=== PATIENT | male | born 1960 | race Caucasian/White ===

== ENCOUNTER 2016-12-23 11:41 | Observation (INO) | payer BC ==
--- NOTE | 2016-12-23 11:52 | ED ---
Chest Pain HPI - General Stated Complaint: Near Syncope Time Seen by Provider: 12/23/16 11:41 Source: patient, EMS, RN notes reviewed, old records reviewed Mode of arrival: EMS - History of Present Illness Initial Comments: This is a 56-year-old male who states he had the onset around 10:30 this morning of sharp lower sternal pain radiation to back and was moderate in severity associated with some nausea near-syncope diaphoresis dizziness last about 1 hour 10 minutes. He was pale diaphoretic per paramedics. Pain is currently gone. Prior to the episodes he was feeling fine. No cough fevers chills sweats or phlegm production reported otherwise MD Complaint: chest pain, other - Related Data Home Medications Medication Instructions Recorded Confirmed Atorvastatin [Lipitor] 40 mg PO HS 12/23/16 12/23/16 Levothyroxine Sodium [Synthroid] 25 mcg PO DAILY 12/23/16 12/23/16 Previous Rx's Medication Instructions Recorded Aspirin 325 mg PO DAILY #30 tab 01/04/16 Clopidogrel [Plavix] 75 mg PO DAILY #30 tab 01/04/16 Lisinopril [Zestril] 5 mg PO DAILY #30 tab 01/04/16 Metoprolol Tartrate [Lopressor] 50 mg PO BID #60 tab 01/04/16 Allergies Allergy/AdvReac Type Severity Reaction Status Date / Time No Known Allergies Allergy Verified 12/23/16 12:53 Review of Systems ROS Statement: Those systems with pertinent positive or pertinent negative responses have been documented in the HPI. ROS Other: All systems not noted in ROS Statement are negative. EKG Findings - EKG Results: EKG: interpreted by RIC, sinus rhythm (Sinus bradycardia rate of 50. Interval 204 QRS of 94 QT since QTC of 464/423 old inferior changes no acute ST-T wave changes no change when compared to the EMS 12-lead there was presented. This also compared to an EKG dated 12/31/15) Past Medical History Past Medical History: No Reported History, Coronary Artery Disease (CAD) Additional Past Medical History / Comment(s): Acute inferior wall ST segment elevation myocardial infarction, psoriasis History of Any Multi-Drug Resistant Organisms: None Reported Past Surgical History: Hernia Repair Additional Past Surgical History / Comment(s): L inguinal hernia repair, artery catheterization. Past Anesthesia/Blood Transfusion Reactions: No Reported Reaction Past Psychological History: No Psychological Hx Reported Additional Psychological History / Comment(s): Pt resides with his spouse. He is independent. Smoking Status: Never smoker Past Alcohol Use History: Rare Past Drug Use History: None Reported - Past Family History Father Family Medical History: Congestive Heart Failure (CHF) Additional Family Medical History / Comment(s): Father at the age of 72 yrs of CHF Mother Family Medical History: Cancer Additional Family Medical History / Comment(s): Mother of leukemia at the age of 47yrs. General Exam - General Exam Comments Initial Comments: This is a well-developed well-nourished awake alert oriented history male General appearance: alert, in no apparent distress Head exam: Present: atraumatic, normocephalic, normal inspection Eye exam: Present: normal appearance, PERRL, EOMI. Absent: scleral icterus, conjunctival injection, periorbital swelling ENT exam: Present: normal exam, mucous membranes moist Neck exam: Present: normal inspection. Absent: tenderness, meningismus, lymphadenopathy Respiratory exam: Present: normal lung sounds bilaterally. Absent: respiratory distress, wheezes, rales, rhonchi, stridor Cardiovascular Exam: Present: regular rate, normal rhythm, normal heart sounds. Absent: systolic murmur, diastolic murmur, rubs, gallop, clicks GI/Abdominal exam: Present: soft, normal bowel sounds. Absent: distended, tenderness, guarding, rebound, rigid Extremities exam: Present: normal inspection, full ROM, normal capillary refill. Absent: tenderness, pedal edema, joint swelling, calf tenderness Back exam: Present: normal inspection Neurological exam: Present: alert, oriented X3, CN II-XII intact Psychiatric exam: Present: normal affect, normal mood Skin exam: Present: warm, dry, intact, normal color. Absent: rash Course Vital Signs 12/23/16 12/23/16 11:46 12:02 Temperature 97.2 F L Pulse Rate 52 L 48 L Respiratory 18 18 Rate Blood Pressure 119/71 108/58 O2 Sat by Pulse 95 96 Oximetry Chest Pain MDM - [facility] Patient has been asymptomatic since arrival. Did discuss findings with him as well as. Patient will be admitted for observation and evaluation by cardiology. I did discuss case with Dr. Wallace. The patient does relate that he 's been having episodes of chest pain recently. The concern is that this is similar to his presentation year ago and bypass surgery. Disposition Clinical Impression: Chest pain Disposition: ADMITTED IP TO THIS HOSP Condition: Stable Referrals: Yajaira Andres MD [Primary Care Provider] - 1-2 days
[2016-12-23 12:21] LABS: Basophils # (A) 0.1 k/uL (0-0.2); Basophils % (A) 1 %; CH 29.8; CHCM 35.2; Eosinophils # (A) 0.2 k/uL (0-0.7); Eosinophils % (A) 2 %; HDW 2.63; HGB 14.8 gm/dL (13.0-17.5); Luc # (Auto) 0.12; Luc % (Auto) 1; Lymphocytes # (A) 1.4 k/uL (1.0-4.8); Lymphocytes % (A) 15 %; MCH 29.2 pg (25.0-35.0); MCHC 34.4 g/dL (31.0-37.0); Mean Platelet Volume 6.6; Monocytes # (A) 0.5 k/uL (0-1.0); Monocytes % (A) 5 %; Neutrophils # (A) 7.3 k/uL (1.3-7.7); Neutrophils % (A) 77 %; RBC 5.06 m/uL (4.30-5.90); RDW 13.2 % (11.5-15.5); WBC 9.5 k/uL (3.8-10.6); WBC (Perox) 9.36
--- NOTE | 2016-12-23 12:23 | XR ---
EXAMINATION TYPE: XR chest 2V DATE OF EXAM: 12/23/2016 COMPARISON: January 04, 2016 HISTORY: Chest pain lightheadedness and dizziness today. TECHNIQUE: Frontal and lateral views of the chest are obtained. FINDINGS: There is a vague small airspace opacity at the right lung base. There is also right perihi lar lymphadenopathy. There is no pneumothorax or pleural effusion. There is an implantable device not ed within the heart overlying the left atrium. There is been a sternotomy. The cardiac silhouette is unchanged. IMPRESSION: Right perihilar and right lower lobe opacity. Could be related to atelectasis or focal pneumonia. Fol low-up is required to ensure resolution and exclude neoplasm.
[2016-12-23 12:32] LABS: ALT 47 U/L (21-72); AST 44 U/L (17-59); Alkaline Phosphatase 70 U/L (38-126); Amylase 68 U/L (30-110); Anion Gap 10 mmol/L; Blood Urea Nitrogen 17 mg/dL (9-20); Calcium 9.2 mg/dL (8.4-10.2); Carbon Dioxide 22 mmol/L (22-30); Chloride 107 mmol/L (98-107); Glucose 91 mg/dL (74-99); Magnesium 1.9 mg/dL (1.6-2.3); Non-African American GFR(MDRD) >60 (>60 ml/min/1.73 sqM); Potassium 4.4 mmol/L (3.5-5.1); Sodium 139 mmol/L (137-145); Total Bilirubin 2.5 mg/dL (0.2-1.3); Total Protein 6.5 g/dL (6.3-8.2)
[2016-12-23 12:41] LABS: Creatine Kinase 171 U/L (55-170)
[2016-12-23 12:44] LABS: Prothrombin Time 10.3 sec (9.0-12.0)
[2016-12-23 12:46] LABS: Partial Thromboplastin Time 20.7 sec (22.0-30.0)
[2016-12-23 12:55] LABS: Creatine Kinase MB 1.2 ng/mL (0.0-2.4); Troponin I <0.012 ng/mL (0.000-0.034)
[2016-12-23] MEDS ORDERED: HEPARIN SODIUM,PORCINE 5,000 UNIT/ML 1 ML VIAL IV ONE (13:30)
[2016-12-23] MEDS ORDERED: HEPARIN SODIUM,PORCINE/D5W PMX 25,000 UNIT in DEXTROSE/WATER 1 500ML.BAG IV SCH (13:30)
[2016-12-23] MEDS ORDERED: NITROGLYCERIN SL TABS 0.4 MG TAB SUBLINGUAL PRN (13:30)
[2016-12-23] MEDS: SODIUM CHLORIDE 0.9% 1,000 ML IV SCH (13:56)
--- NOTE | 2016-12-23 18:31 | P.HPIM ---
History of Present Illness H&P Date: 12/23/16 Chief Complaint: Chest pain This is a pleasant 56-year-old gentleman patient of Dr. Andres. He has underlying history of CAD with prior CABG in December 2015 with 4 vessel bypass graft disease, AMZA to the LAD, reverse saphenous vein graft to diagonal artery , ICA, and radial artery to the circumflex when he presented at that time to have an STEMI he follows with Dr. Moncada cardiology. He also has hyperlipidemia , and hypertension no diagnosis of CHF no CVA no diabetes mellitus, he has hypothyroidism and psoriasis. Admitted to the hospital secondary to chest discomfort. Patient was preparing for a yard sale and when he had the chest pain it was a 1030 morning, it was sharp in the epigastric region radiating to the left shoulder accompanied by diaphoresis and nausea and dizziness, patient did not take any medications at home for chest pain including aspirin or nitroglycerin prior to his evaluation, EMS has assisted him at home, EKG at that time failed to reveal any changes, no nitro her aspirin was given, he was subsequently in the emergency room in 15 minutes, chest pain has abated at that time. Patient was admitted for cardiac surveillance for a coronary event. He is worried as his symptoms have been similar presentation to his STEMI In the emergency room EKG was performed showing sinus bradycardia heart rate 50 , inferior infarct with Q waves in 3 and aVF patient currently is heparinize with consultation to cardiology, echocardiogram with serial cardiac markers initial troponin 0.012, lipase normal, d-dimer normal Review of Systems Constitutional: Reports as per HPI, Denies anorexia, Denies chills, Denies chronic headaches, Denies chronic pain, Denies daytime sleepiness, Denies fatigue, Denies fever, Denies lethargy, Denies malaise, Denies night sweats, Denies poor appetite, Denies sweats, Denies weakness, Denies weight gain, Denies weight loss Ears, nose, mouth and throat: Reports as per HPI, Denies ant. neck pain, Denies bleeding gums, Denies dental pain, Denies dysphagia, Denies epistaxis, Denies headache, Denies hoarseness, Denies mouth pain, Denies nasal congestion, Denies nasal discharge, Denies neck fullness/pressure, Denies neck lump, Denies nose pain, Denies odynophagia, Denies post-nasal drip, Denies sinus pain, Denies sinus pressure, Denies swelling in mouth, Denies swelling in throat, Denies sore throat, Denies vertigo, Denies voice changes Cardiovascular: Reports as per HPI, Reports chest pain, Denies claudication, Denies decreased exercise tolerance, Denies dyspnea on exertion, Denies edema, Denies high blood pressure, Denies irregular heart beat, Denies leg edema, Denies lightheadedness, Denies orthopnea, Denies palpitations, Denies paroxysmal nocturnal dyspnea, Denies phlebitis, Denies rapid heart beat, Denies shortness of breath, Denies syncope Respiratory: Reports as per HPI Gastrointestinal: Reports as per HPI Genitourinary: Reports as per HPI Musculoskeletal: Reports as per HPI Integumentary: Reports as per HPI, Reports lesions (Psoriasis stable) Neurological: Reports as per HPI, Denies aphasia, Denies ataxia, Denies balance difficulties, Denies burning pain, Denies change in mentation, Denies change in smell/taste, Denies change in speech, Denies confusion, Denies convulsions, Denies double vision, Denies gait dysfunction, Denies head injury, Denies headaches, Denies hearing difficulties, Denies lack of coordination, Denies loss of vision, Denies memory loss, Denies migraines, Denies motor disturbance, Denies numbness, Denies paralysis, Denies paresthesias, Denies seizures, Denies sensory deficit, Denies spasticity, Denies syncope, Denies tic, Denies tingling , Denies transient paralysis, Denies tremors, Denies vertigo, Denies weakness, Denies visual changes Psychiatric: Reports as per HPI, Denies anhedonia, Denies anxiety, Denies anxiety attacks, Denies change in appetite, Denies change in libido, Denies change in sleep habits, Denies confusion, Denies depression, Denies difficulty concentrating, Denies disorientation, Denies hallucinations, Denies hopelessness , Denies hypersomnia, Denies insomnia, Denies irritability, Denies memory loss, Denies mood swings, Denies paranoia, Denies sadness/tearfulness, Denies sleep disturbances, Denies suicidal ideation Endocrine: Reports as per HPI, Denies cold intolerance, Denies deepening of the voice, Denies excessive sweating, Denies excessive thirst, Denies fatigue, Denies flushing, Denies heat intolerance, Denies high blood sugars, Denies increase in ring/shoe/hat size, Denies low blood sugars, Denies nocturia, Denies palpitations, Denies polydipsia, Denies polyphagia, Denies polyuria, Denies proptosis, Denies recent glucocorticoid use, Denies thyroid mass, Denies weight change Hematologic/Lymphatic: Reports as per HPI Allergic/Immunologic: Reports as per HPI, Denies allergic rhinitis, Denies anaphylaxis, Denies angioedema, Denies gluten intolerance, Denies persistent infections, Denies seasonal allergies, Denies urticaria, Denies wheezing Past Medical History Past Medical History: Coronary Artery Disease (CAD) Additional Past Medical History / Comment(s): Acute inferior wall ST segment elevation myocardial infarction, psoriasis History of Any Multi-Drug Resistant Organisms: None Reported Past Surgical History: Coronary Bypass/CABG, Heart Catheterization, Hernia Repair Additional Past Surgical History / Comment(s): L inguinal hernia repair, artery catheterization. Past Anesthesia/Blood Transfusion Reactions: No Reported Reaction Smoking Status: Never smoker - Past Family History Father Family Medical History: Congestive Heart Failure (CHF) Additional Family Medical History / Comment(s): Father at the age of 72 yrs of CHF Mother Family Medical History: Cancer Additional Family Medical History / Comment(s): Mother of leukemia at the age of 47yrs. Brother(s) History Unknown: Yes (2 brothers healthy no sisters) Daughter(s) History Unknown: Yes (No daughters) Son(s) History Unknown: Yes (3 sons healthy) Medications and Allergies Home Medications Medication Instructions Recorded Confirmed Type Atorvastatin [Lipitor] 40 mg PO HS 12/23/16 12/23/16 History Levothyroxine Sodium [Synthroid] 25 mcg PO DAILY 12/23/16 12/23/16 History Allergies Allergy/AdvReac Type Severity Reaction Status Date / Time No Known Allergies Allergy Verified 12/23/16 12:53 Physical Exam Vitals: Vital Signs Temp Pulse Pulse Resp BP BP Pulse Ox 12/23/16 16:15 52 L 12/23/16 14:55 98 12/23/16 14:46 50 L 12/23/16 14:17 98.5 F 54 L 16 123/78 97 12/23/16 13:52 97.4 F L 49 L 16 115/68 99 08/13/17 12:02 48 L 18 108/58 96 12/23/16 11:46 97.2 F L 52 L 18 119/71 95 Intake and Output 12/23/16 12/23/16 12/23/16 06:59 14:59 22:59 Intake Total 10 Balance 10 Intake: Amount of Fluid Infused ( 10 ml) Other: Voiding Method Toilet Toilet # Voids 1 Weight 88.8 kg Patient Weight 12/24/16 06:59 Weight 88.8 kg - Constitutional General appearance: cooperative, no acute distress - EENT Eyes: anicteric sclerae, EOMI, PERRLA, dentition normal, normal appearance ENT: hearing grossly normal, NA/AT, normal oropharynx - Neck Neck: normal ROM - Cardiovascular Rhythm: regular Heart sounds: normal: S1, S2 Abnormal Heart Sounds: no systolic murmur, no diastolic murmur, no rub, no S3 Gallop, no S4 Gallop, no click, no other - Gastrointestinal General gastrointestinal: normal bowel sounds, soft - Integumentary Integumentary: normal, normal turgor - Neurologic Neurologic: CNII-XII intact, focal deficits (None) - Musculoskeletal Musculoskeletal: gait normal, strength equal bilaterally - Psychiatric Psychiatric: A&O x's 3, appropriate affect, intact judgment & insight Results CBC & Chem 7: 12/23/16 12:00 12/23/16 12:00 Labs: Abnormal Lab Results - Last 24 Hours (Table) 12/23/16 12/23/16 12/23/16 Range/Units 12:00 12:00 12:00 APTT 20.7 L (22.0-30.0) sec Total Bilirubin 2.5 H (0.2-1.3) mg/dL Total Creatine Kinase 171 H (55-170) U/L Laboratory Results WBC 9.5 k/uL (3.8-10.6) 12/23/16 12:00 RBC 5.06 m/uL (4.30-5.90) 12/23/16 12:00 Hgb 14.8 gm/dL (13.0-17.5) 12/23/16 12:00 Hct 43.0 % (39.0-53.0) 12/23/16 12:00 MCV 85.0 fL (80.0-100.0) 12/23/16 12:00 MCH 29.2 pg (25.0-35.0) 12/23/16 12:00 MCHC 34.4 g/dL (31.0-37.0) 12/23/16 12:00 RDW 13.2 % (11.5-15.5) 12/23/16 12:00 Plt Count 255 k/uL (150-450) 12/23/16 12:00 Neutrophils % 77 % 12/23/16 12:00 Lymphocytes % 15 % 12/23/16 12:00 Monocytes % 5 % 12/23/16 12:00 Eosinophils % 2 % 12/23/16 12:00 Basophils % 1 % 12/23/16 12:00 Neutrophils # 7.3 k/uL (1.3-7.7) 12/23/16 12:00 Lymphocytes # 1.4 k/uL (1.0-4.8) 12/23/16 12:00 Monocytes # 0.5 k/uL (0-1.0) 12/23/16 12:00 Eosinophils # 0.2 k/uL (0-0.7) 12/23/16 12:00 Basophils # 0.1 k/uL (0-0.2) 12/23/16 12:00 PT 10.3 sec (9.0-12.0) 12/23/16 12:00 INR 1.0 (<1.2) 12/23/16 12:00 APTT 20.7 sec (22.0-30.0) L 12/23/16 12:00 D-Dimer <0.17 mg/L FEU (<0.60) 12/23/16 12:00 Sodium 139 mmol/L (137-145) 12/23/16 12:00 Potassium 4.4 mmol/L (3.5-5.1) 12/23/16 12:00 Chloride 107 mmol/L (98-107) 12/23/16 12:00 Carbon Dioxide 22 mmol/L (22-30) 12/23/16 12:00 Anion Gap 10 mmol/L 12/23/16 12:00 BUN 17 mg/dL (9-20) 12/23/16 12:00 Creatinine 0.93 mg/dL (0.66-1.25) 12/23/16 12:00 Est GFR (MDRD) Af Amer >60 (>60 ml/min/1.73 sqM) 12/23/16 12:00 Est GFR (MDRD) Non-Af >60 (>60 ml/min/1.73 sqM) 12/23/16 12:00 Glucose 91 mg/dL (74-99) 12/23/16 12:00 Calcium 9.2 mg/dL (8.4-10.2) 12/23/16 12:00 Magnesium 1.9 mg/dL (1.6-2.3) 12/23/16 12:00 Total Bilirubin 2.5 mg/dL (0.2-1.3) H 12/23/16 12:00 AST 44 U/L (17-59) 12/23/16 12:00 ALT 47 U/L (21-72) 12/23/16 12:00 Alkaline Phosphatase 70 U/L (38-126) 12/23/16 12:00 Total Creatine Kinase 171 U/L (55-170) H 12/23/16 12:00 CK-MB (CK-2) 1.2 ng/mL (0.0-2.4) 12/23/16 12:00 CK-MB (CK-2) Rel Index 0.7 12/23/16 12:00 Troponin I <0.012 ng/mL (0.000-0.034) 12/23/16 12:00 NT-Pro-B Natriuret Pep 232 pg/mL 12/23/16 12:00 Total Protein 6.5 g/dL (6.3-8.2) 12/23/16 12:00 Albumin 4.1 g/dL (3.5-5.0) 12/23/16 12:00 Amylase 68 U/L (30-110) 12/23/16 12:00 Lipase 67 U/L (23-300) 12/23/16 12:00 Thrombosis Risk Factor Assmnt - Choose All That Apply Any of the Below Risk Factors Present?: No Other Risk Factors: No Other congenital or acquired thrombophilia - If yes, enter type in comment: No Thrombosis Risk Factor Assessment Level: Very Low Risk Assessment and Plan Plan: 1. Atypical chest pain with no clear-cut features of unstable angina, patient has epigastric discomfort radiating to the left shoulder, nonexertional in nature, patient has known history of CAD with prior CABG in the past, last stress test was June 2016 and was reportedly to be normal, patient was in consultation with cardiology, cardiac biomarkers for troponins and echocardiogram will be obtained, patient's on IV heparin, and sublingual nitro when necessary continue on Plavix Lipitor and full dose aspirin 325 mg metoprolol 50 mg twice a day lisinopril 5 mg daily 2. Hypertensive card vascular disease on lisinopril 5 daily and Toprol 50 mg twice a day, 3. Hypothyroidism on levothyroxine 25 mg daily 4. Hyperlipidemia on Lipitor 40 mg GI prophylaxis using Pepcid DVT prophylaxis patient currently is on IV heparin for cardiac reasons CODE STATUS full
[2016-12-23] MEDS ORDERED: HEPARIN SODIUM,PORCINE 5,000 UNIT/ML 1 ML VIAL IV PRN (19:26)
[2016-12-23 19:54] LABS: Creatine Kinase 140 U/L (55-170)
[2016-12-23 20:08] LABS: Troponin I <0.012 ng/mL (0.000-0.034)
[2016-12-23] MEDS: FAMOTIDINE 20 MG TAB PO SCH (20:55)
[2016-12-23] MEDS ORDERED: ATORVASTATIN 40 MG TAB PO SCH (21:00)
[2016-12-23] MEDS ORDERED: METOPROLOL TARTRATE 50 MG TAB PO SCH (21:00)
[2016-12-24 01:17] LABS: Creatine Kinase 119 U/L (55-170)
[2016-12-24 01:30] LABS: Troponin I <0.012 ng/mL (0.000-0.034)
[2016-12-24 07:55] LABS: Cholesterol 140 mg/dL (<200); HDL Cholesterol 44 mg/dL (40-60)
[2016-12-24] MEDS ORDERED: ASPIRIN 81 MG CHEW PO SCH (09:00)
[2016-12-24] MEDS ORDERED: ASPIRIN 325 MG TAB PO SCH ×2 (09:00)
[2016-12-24] MEDS ORDERED: LISINOPRIL 5 MG TAB PO SCH (09:00)
[2016-12-24] MEDS ORDERED: CLOPIDOGREL 75 MG TAB PO SCH (09:00)
[2016-12-24] MEDS ORDERED: METOPROLOL TARTRATE 50 MG TAB PO SCH (09:00)
[2016-12-24] MEDS ORDERED: LEVOTHYROXINE 25 MCG TAB PO SCH (09:00)
--- NOTE | 2016-12-24 10:26 | ECHOF ---
Referral Reason:Chest pain MEASUREMENTS -------- HEIGHT: 180.3 cm WEIGHT: 88.5 kg BP: 113/70 RVIDd: 3.8 cm (< 3.3) IVSd: 1.3 cm (0.6 - 1.1) LVIDd: 4.3 cm (3.9 - 5.3) LVPWd: 1.3 cm (0.6 - 1.1) IVSs: 1.9 cm LVIDs: 2.9 cm LVPWs: 1.3 cm Ao Diam: 2.9 cm (2.0 - 3.7) AV Cusp: 2.2 cm (1.5 - 2.6) LA Diam: 3.4 cm (2.7 - 3.8) MV EXCURSION: 14.924 mm (> 18.000) MV EF SLOPE: 129 mm/s (70 - 150) EPSS: 0.6 cm MV E Ryan: 0.72 m/s MV DecT: 172 ms MV A Ryan: 0.61 m/s MV E/A Ratio: 1.18 RAP: 5.00 mmHg RVSP: 13.09 mmHg FINDINGS -------- Sinus rhythm. This was a technically good study. There is mild concentric left ventricular hypertrophy. Overall left ventricular systolic function is mildly impaired with, an EF between 45 - 50 %. Inferiorlateral Hypokinesis The right ventricle is mild to moderately enlarged. The left atrium is normal in size. The right atrium is normal in size. The aortic valve is trileaflet, and appears structurally normal. No aortic stenosis or regurgitation. There is trace mitral regurgitation. Trace tricuspid regurgitation present. The right ventricular systolic pressure, as measured by Doppler, is 13.09mmHg. Pulmonic valve appears structurally normal. The aortic root size is normal. Normal inferior vena cava with normal inspiratory collapse consistent with estimated right atrial pressure of 5 mmHg. The pericardium is normal. CONCLUSIONS -------- 1. Sinus rhythm. 2. There is trace mitral regurgitation. 3. Trace tricuspid regurgitation present. 4. The right ventricular systolic pressure, as measured by Doppler, is 13.09mmHg. 5. Pulmonic valve appears structurally normal. 6. The aortic root size is normal. 7. Normal inferior vena cava with normal inspiratory collapse consistent with estimated right atrial pressure of 5 mmHg. 8. The pericardium is normal. 9. This was a technically good study. 10. There is mild concentric left ventricular hypertrophy. 11. Overall left ventricular systolic function is mildly impaired with, an EF between 45 - 50 %. 12. Inferiorlateral Hypokinesis 13. The right ventricle is mild to moderately enlarged. 14. The left atrium is normal in size. 15. The right atrium is normal in size. 16. The aortic valve is trileaflet, and appears structurally normal. No aortic stenosis or regurgitation. GRAPHIC MANAGER: Daniela Will RDCS
[2016-12-24 11:55] LABS: Hemoglobin A1C 5.3 % (4.2-6.1)
--- NOTE | 2016-12-24 11:56 | ECHOS ---
DATE OF SERVICE: 12/24/2016 TYPE OF REPORT: STRESS ECHOCARDIOGRAM INDICATION: Chest pain. BASELINE HEART RATE: 65 BASELINE BLOOD PRESSURE: 113/70 MAXIMUM HEART RATE: 140 MAXIMUM BLOOD PRESSURE: 193/113 85% MPHR: 139 100% MPHR: 164 METS: 12.1 MAXIMUM STAGE REACHED: 4 TOTAL EXERCISE TIME: 12:00 Baseline EKG revealed a sinus mechanism with nondiagnostic inferior Q-waves suggestive of possible prior old inferior AR. Patient had rare isolated PVC's. He walked on a standard Kulwinder protocol for 12 minutes, achieved a maximum heart rate of 140 beats per minute which is 85% of predicted maximal. The ectopy seemed to disappear as exercise progressed. There was no angina. There were no ST segment changes to indicate ischemia. By EKG criteria, this is a negative stress test with excellent exercise capacity with rare PVC's. There was one couplet noted, unassociated with symptoms. Baseline echo images revealed an area of hypokinesia involving the inferior wall of left ventricle which was seen on rest images. The rest of the myocardium seemed to contract well. Resting ejection fraction was between 45% to 50% with inferobasal and inferoseptal hypokinesia. At peak exercise, there was good augmentation of left ventricular wall motion and wall thickening of all segments except the inferior wall where he had a prior inferior AR. The study suggests old inferior AR without evidence of stress induced ischemia with an excellent exercise capacity. FINAL IMPRESSION: 1. Excellent exercise capacity with a negative stress test by EKG criteria. 2. Isolated ventricular ectopy were noted without symptoms. 3. Stress echocardiogram revealed old inferior myocardial infarction without stress induced ischemia. 4. Results were discussed with the patient and he can be discharged and see Dr. Moncada as an outpatient. in two weeks. ERENDIRA
[2016-12-24 12:01] VITALS: BP 116/64; PULSE 55; RESP 18; TEMP 98.5
[2016-12-24] MEDS: FAMOTIDINE 20 MG TAB PO SCH (14:44)
[2016-12-24] MEDS: SODIUM CHLORIDE 0.9% 1,000 ML IV SCH (14:45)
--- NOTE | 2016-12-24 15:37 | P.DS ---
Providers Date of admission: 12/23/16 13:33 Expected date of discharge: 12/24/16 Attending physician: Ansley Wallace Consults: 12/23/16 13:30 Consult Physician Urgent Consulting Provider: Shawn Moncada Consult Reason/Comments: Chest pain Do you want consulting provider notified?: Yes Primary care physician: Yajaira Andres [facility] Course: This is a pleasant 56-year-old gentleman patient of Dr. Andres. He has underlying history of CAD with prior CABG in December 2015 with 4 vessel bypass graft disease, MAZA to the LAD, reverse saphenous vein graft to diagonal artery , ICA, and radial artery to the circumflex when he presented at that time to have an STEMI he follows with Dr. Moncada cardiology. He also has hyperlipidemia , and hypertension no diagnosis of CHF no CVA no diabetes mellitus, he has hypothyroidism and psoriasis. Admitted to the hospital secondary to chest discomfort. Patient was preparing for a yard sale and when he had the chest pain it was a 1030 morning, it was sharp in the epigastric region radiating to the left shoulder accompanied by diaphoresis and nausea and dizziness, patient did not take any medications at home for chest pain including aspirin or nitroglycerin prior to his evaluation, EMS has assisted him at home, EKG at that time failed to reveal any changes, no nitro her aspirin was given, he was subsequently in the emergency room in 15 minutes, chest pain has abated at that time. Patient was admitted for cardiac surveillance for a coronary event. He is worried as his symptoms have been similar presentation to his STEMI In the emergency room EKG was performed showing sinus bradycardia heart rate 50 , inferior infarct with Q waves in 3 and aVF patient currently is heparinize with consultation to cardiology, echocardiogram with serial cardiac markers initial troponin 0.012, lipase normal, d-dimer normal 12/24: Patient was seen in consultation by Dr. BENNETT Madrigal. Echocardiogram reveals trace mitral regurgitation, trace tricuspid regurgitation EF 45-50% with mild concentric left ventricular hypertrophy. He underwent a stress echocardiogram which was normal and patient was cleared for discharge home today in stable condition. Patient will be sent home with nitroglycerin to use if he develops further chest pain. Full strength aspirin has been changed 81 mg daily and Lopressor changed to once daily. Discharge diagnoses: 1. Atypical chest pain 2. Hypertensive card vascular disease 3. Hypothyroidism 4. Hyperlipidemia Discharge plan: Return home Impression and plan of care have been directed as dictated by the signing physician. Danielle De Guzman nurse practitioner acting as scribe for signing physician. Patient Condition at Discharge: Good Plan - Discharge Summary New Discharge Prescriptions: New Aspirin 81 mg PO DAILY Nitroglycerin Sl Tabs [Nitrostat] 0.4 mg SUBLINGUAL Q5M PRN #25 tab PRN Reason: Chest Pain Continue Clopidogrel [Plavix] 75 mg PO DAILY #30 tab Lisinopril [Zestril] 5 mg PO DAILY #30 tab Levothyroxine Sodium [Synthroid] 25 mcg PO DAILY Atorvastatin [Lipitor] 40 mg PO HS Changed Metoprolol Tartrate [Lopressor] 50 mg PO DAILY #60 tab Discontinued Aspirin 325 mg PO DAILY #30 tab Discharge Medication List Clopidogrel [Plavix] 75 mg PO DAILY #30 tab 01/04/16 [Rx] Lisinopril [Zestril] 5 mg PO DAILY #30 tab 01/04/16 [Rx] Atorvastatin [Lipitor] 40 mg PO HS 12/23/16 [History] Levothyroxine Sodium [Synthroid] 25 mcg PO DAILY 12/23/16 [History] Aspirin 81 mg PO DAILY 12/24/16 [Rx] Metoprolol Tartrate [Lopressor] 50 mg PO DAILY #60 tab 12/24/16 [Rx] Nitroglycerin Sl Tabs [Nitrostat] 0.4 mg SUBLINGUAL Q5M PRN #25 tab 12/24/16 [Rx ] Follow up Appointment(s)/Referral(s): Yajiara Andres MD [Primary Care Provider] - 1 Week Shawn Moncada MD [STAFF PHYSICIAN] - 01/07/17 11:00 am Patient Instructions/Handouts: Angina (GEN) Discharge Disposition: HOME SELF-CARE
--- NOTE | 2016-12-24 17:50 | CONS ---
This is a 56-year-old gentleman with a known history of prior inferior TX and aortocoronary bypass surgery. This gentleman presented initially in December of 2015 with acute inferior TX, was found to have a distal left main disease, and also a 95% RCA stenosis. He underwent balloon angioplasty of RCA, and 48 hours later he went on to have aortocoronary bypass surgery with a MAZA to LAD, vein graft to the RCA, and also a radial artery free graft to the circumflex. Since then he has done well. In May of this year he walked on a standard Kulwinder protocol for 10-1/2 minutes with evidence of old inferior TX without any stress- induced ischemia. However, yesterday he was getting ready for a garage sale. He did some moving of tables and stuff and then he was on his way to go and get some donuts and felt an uncomfortable feeling below his left sternum, mostly in the epigastric area, and then this radiated to the back. He felt a little diaphoretic. He felt uncomfortable and there was an element of anxiety. Then he pulled over and went into the house and called 911. By the time EMS arrived, his symptoms had resolved. However, he comes into the hospital, and since arrival he is asymptomatic. His troponins are normal. His EKG revealed sinus bradycardia without acute changes. There is evidence of old inferior TX. He is resting comfortably without symptoms. PAST MEDICAL HISTORY: 1. Acute inferior TX with PTCA of RCA and 48 hours later bypass surgery. 2. Hypertension. 3. Hyperlipidemia. Medications at home include: 1. Aspirin. 2. Plavix. 3. Lopressor 50 mg b.i.d. 4. Atorvastatin 40 mg daily. 5. Lisinopril 5 mg daily. 6. Levothyroxine 25 mcg daily. ALLERGIES: NONE. REVIEW OF SYSTEMS: Unremarkable other than above-mentioned facts. On examination, blood pressure is in the range of 128/70. Pulse rate is about 56 per minute. HEENT: Unremarkable. Fundus was not examined by me. Neck is supple. No JVD. I do not hear a carotid bruit. Heart exam reveals S1, S2 heard normally without a significant rub, murmur or gallop. Lungs are clear. Abdomen is soft, non-tender. Lower extremities reveal normal pulses. No edema. Central nervous system is normal. EKG revealed sinus bradycardia, evidence of old inferior TX. No acute changes. IMPRESSION: 1. Epigastric and chest pain; seems atypical, but given patient's previous history of myocardial infarction and bypass surgery, we cannot exclude this being angina. However, pain is atypical. 2. Hypertension. 3. Hypercholesterolemia. RECOMMENDATIONS: I am recommending that we decrease the Lopressor to 50 mg daily , hold it this morning. Discontinue IV heparin. Decrease aspirin to 81 mg daily. Increase activity. Perform a stress echo, and if this is normal, he can be discharged. I discussed my thoughts in detail with the patient. Thank you very much for the consult. ERENDIRA
== END 2016-12-24 14:27 | disposition home or self-care (01) ==
LOC: EC 11:41 → 3OBS 13:33
PROVIDERS: ADMIT Family Medicine; ATTEND Family Medicine
DX: R07.89 Other chest pain (principal); R10.13 Epigastric pain; R11.0 Nausea; R42 Dizziness and giddiness; R61 Generalized hyperhidrosis; I25.10 Atherosclerotic heart disease of native coronary artery without angina pectoris; I11.9 Hypertensive heart disease without heart failure; E03.9 Hypothyroidism, unspecified; E78.5 Hyperlipidemia, unspecified; E78.00 Pure hypercholesterolemia, unspecified; I25.2 Old myocardial infarction; Z95.1 Presence of aortocoronary bypass graft; Z82.49 Family history of ischemic heart disease and other diseases of the circulatory system; Z80.6 Family history of leukemia; Z79.82 Long term (current) use of aspirin; Z79.899 Other long term (current) drug therapy; Z79.02 Long term (current) use of antithrombotics/antiplatelets
CPT/HCPCS: 99285; 96376 ×3; 96365; 96366 ×2; 36415; 94760; 93005; 93017; 93306; 93350; 85379; 83880; 80061; 80053; 82150; 83036; 82550 ×2; 82553 ×2; 83690; 83735; 84484 ×2; 85025; 85610; 85730 ×2; 71020; G0378 ×2; J1644 ×2

== ENCOUNTER → 2020-01-28 | Outpatient (CLI) | payer BC ==
[2020-01-28 08:53] LABS: Basophils # (A) 0.1 k/uL (0-0.2); Basophils % (A) 1 %; Eosinophils # (A) 0.2 k/uL (0-0.7); Eosinophils % (A) 3 %; HCT 45.4 % (39.0-53.0); HGB 15.2 gm/dL (13.0-17.5); Lymphocytes # (A) 2.5 k/uL (1.0-4.8); Lymphocytes % (A) 26 %; MCH 29.3 pg (25.0-35.0); MCHC 33.5 g/dL (31.0-37.0); MCV 87.3 fL (80.0-100.0); Monocytes # (A) 0.6 k/uL (0-1.0); Monocytes % (A) 7 %; Neutrophils # (A) 6.1 k/uL (1.3-7.7); Neutrophils % (A) 63 %; Platelet Count 255 k/uL (150-450); RBC 5.21 m/uL (4.30-5.90); RDW 12.8 % (11.5-15.5); WBC 9.7 k/uL (3.8-10.6)
[2020-01-28 16:25] LABS: African American GFR (CKD) 76.3 (60.0-200.0); Chol/HDL Ratio 3.46; LDL Cholesterol,Calculated 74.6 mg/dL (0.0-131.0); Non-African American GFR(CKD) 65.8 (60.0-200.0); VLDL Calculation 16.4 mg/dL (5.00-40.00)
== END | disposition home or self-care (01) ==
LOC: LABWHC1 08:10
PROVIDERS: ATTEND Internal Medicine Cardiovascular Disease
DX: E78.2 Mixed hyperlipidemia (principal); L40.0 Psoriasis vulgaris
CPT/HCPCS: 36415; 80061; 82565; 84450; 84460; 84520; 85025; 86480

== ENCOUNTER → 2021-01-25 | Outpatient (CLI) | payer BC ==
[2021-01-25 10:39] LABS: Basophils # (A) 0.06 X 10*3/uL (0.00-0.10); Basophils % (A) 0.7 %; Eosinophils # (A) 0.22 X 10*3/uL (0.04-0.35); Eosinophils % (A) 2.5 %; HCT 46.9 % (39.6-50.0); HGB 15.4 g/dL (13.0-17.0); Lymphocytes # (A) 2.31 X 10*3/uL (0.90-5.00); Lymphocytes % (A) 25.9 %; MCH 28.8 pg (27.0-32.0); MCHC 32.8 g/dL (32.0-37.0); MCV 87.8 fL (80.0-97.0); Monocytes # (A) 0.74 X 10*3/uL (0.20-1.00); Monocytes % (A) 8.3 %; Neutrophils # (A) 5.54 X 10*3/uL (1.80-7.70); Neutrophils % (A) 62.2 %; Platelet Count 255 X 10*3/uL (140-440); RBC 5.34 X 10*6/uL (4.40-5.60); RDW 12.9 % (11.5-14.5); WBC 8.91 X 10*3/uL (4.50-10.00)
[2021-01-26 02:20] LABS: African American GFR (CKD) 75.7 (60.0-200.0); Chol/HDL Ratio 3.6; LDL Cholesterol,Calculated 90.8 mg/dL (0.0-131.0); Non-African American GFR(CKD) 65.3 (60.0-200.0); VLDL Calculation 21.2 mg/dL (5.00-40.00)
== END | disposition home or self-care (01) ==
LOC: LABWHC1 07:15
PROVIDERS: ATTEND Internal Medicine Cardiovascular Disease
DX: E78.2 Mixed hyperlipidemia (principal); L40.0 Psoriasis vulgaris
CPT/HCPCS: 36415; 80061; 82565; 84450; 84460; 84520; 85025; 86480

== ENCOUNTER → 2022-02-14 | Outpatient (CLI) | payer BC ==
[2022-02-14 18:19] LABS: Basophils # (A) 0.07 X 10*3/uL (0.00-0.10); Basophils % (A) 0.7 %; Eosinophils # (A) 0.23 X 10*3/uL (0.04-0.35); Eosinophils % (A) 2.4 %; HCT 45.1 % (39.6-50.0); HGB 15.1 g/dL (13.0-17.0); Immature Grans, Automated 0.4 %; Lymphocytes # (A) 2.94 X 10*3/uL (0.90-5.00); Lymphocytes % (A) 30.4 %; MCH 29.7 pg (27.0-32.0); MCHC 33.5 g/dL (32.0-37.0); MCV 88.6 fL (80.0-97.0); Mean Platelet Volume 9.8 fL (9.5-12.2); Monocytes # (A) 0.77 X 10*3/uL (0.20-1.00); NRBC Per 100 WBC 0 /100 WBCS (0.0-0.0); Neutrophils # (A) 5.62 X 10*3/uL (1.80-7.70); Neutrophils % (A) 58.1 %; Platelet Count 275 X 10*3/uL (140-440); RBC 5.09 X 10*6/uL (4.40-5.60); RDW 12.7 % (11.5-14.5); WBC 9.67 X 10*3/uL (4.50-10.00)
[2022-02-14 18:31] LABS: African American GFR (CKD) 83.5 (60.0-200.0); Blood Urea Nitrogen 14.5 mg/dL (9.0-27.0); Non-African American GFR(CKD) 72.1 (60.0-200.0)
== END | disposition home or self-care (01) ==
LOC: LABWHC1 11:08
PROVIDERS: ATTEND Physician Assistant Medical
DX: L40.0 Psoriasis vulgaris (principal)
CPT/HCPCS: 36415; 82565; 84450; 84460; 84520; 85025; 86480

== ENCOUNTER → 2022-11-02 | Outpatient (CLI) | payer BC ==
[2022-11-02 15:48] LABS: Basophils # (A) 0.05 X 10*3/uL (0.00-0.10); Basophils % (A) 0.6 %; Eosinophils # (A) 0.21 X 10*3/uL (0.04-0.35); Eosinophils % (A) 2.5 %; HCT 44.9 % (39.6-50.0); HGB 14.4 d/dL (12.0-15.0); Lymphocytes # (A) 2.33 X 10*3/uL (0.90-5.00); Lymphocytes % (A) 27.9 %; MCH 28.4 pg (27.0-32.0); MCHC 32.1 d/dL (32.0-37.0); MCV 88.6 FL (80.0-97.0); Mean Platelet Volume 10.1 FL (9.5-12.2); Monocytes # (A) 0.61 X 10*3/uL (0.20-1.00); Monocytes % (A) 7.3 %; NRBC Per 100 WBC 0 X 10*3/uL (0.00-0.01); Neutrophils # (A) 5.11 X 10*3/uL (1.80-7.70); Neutrophils % (A) 61.3 %; Platelet Count 229 X 10*3/uL (140-440); RBC 5.07 X 10*6/uL (4.40-5.60); RDW 12.9 % (11.5-14.5); WBC 8.34 X 10*3/uL (4.50-10.00)
== END | disposition home or self-care (01) ==
LOC: LABPAT 08:06
PROVIDERS: ATTEND Surgery
DX: Z01.812 Encounter for preprocedural laboratory examination (principal)
CPT/HCPCS: 36415; 85025

== ENCOUNTER → 2022-11-09 | Day surgery (SDC) | payer BC ==
[2022-11-06 15:45] VITALS: BMI 28.5
[~2022-11-09] MED LIST: ACETAMINOPHEN TAB 325 MG TAB PO SCH; ACETAMINOPHEN TAB 500 MG TAB PO PRN; BUPIVACAINE (PF) 0.25% 30 ML VIAL SQ ONE; DEXAMETHASONE SOD PHOSPHATE 4 MG/ML 1 ML VIAL IV ONE; GLYCOPYRROLATE 0.2 MG/ML 2 ML VIAL ONE; HEPARIN SODIUM,PORCINE/PF 5,000 UNIT/0.5 ML SYRINGE SQ PRN; HYDROmorphone (PF) 1 MG/ML ONE; HYDROmorphone 0.5 MG/0.5 ML SYRINGE IVP PRN; IBUPROFEN 600 MG TAB PO SCH; KETOROLAC 30 MG/ML 1 ML VIAL ONE; LACTATED RINGERS 1,000 ML IV ONE; LACTATED RINGERS 1,000 ML IV SCH; LIDOCAINE 2% INJ 20 MG/ML (2 ML VIAL) ONE; MIDAZOLAM 2 MG/2 ML VIAL IV PRN; NEOSTIGMINE 1 MG/ML 10 ML VIAL ONE; ONDANSETRON 4 MG/2 ML VIAL IVP ONE; PROPOFOL 10 MG/ML 20 ML VIAL IV ONE; ROCURONIUM 10 MG/ML (5 ML VIAL) IV ONE; SCOPOLAMINE 1 MG/72 HR PATCH TRANSDERM ONE; SUCCINYLCHOLINE CHLORIDE 200 MG/10 ML VIAL IV ONE; TAMSULOSIN 0.4 MG CAP.ER.24H PO ONE; ePHEDrine 50 MG/ML 1 ML VIAL ONE; fentaNYL (PF) 50 MCG/ML 2 ML AMP ONE
[2022-11-09 06:41] LABS: Glucose,Whole Blood 122 mg/dL (70-110)
--- NOTE | 2022-11-09 07:30 | P.GSHP ---
History of Present Illness H&P Date: 11/09/22 Chief Complaint: Right inguinal hernia Refer to recent history and physical from September. Patient here today for elective repair umbilical hernia right inguinal hernia and excision left hip lipoma. No symptoms have changed since his last visit. Past Medical History Past Medical History: Coronary Artery Disease (CAD), Hyperlipidemia, Hypertension, Myocardial Infarction (NE) Additional Past Medical History / Comment(s): lipoma left thigh, Last Myocardial Infarction Date:: DECEMBER 28, 2015 History of Any Multi-Drug Resistant Organisms: None Reported Past Surgical History: Coronary Bypass/CABG, Heart Catheterization, Hernia Repair Additional Past Surgical History / Comment(s): L inguinal hernia repair, CABG (2015 [facility]), colonoscopy Past Anesthesia/Blood Transfusion Reactions: No Reported Reaction, Motion Sickness Past Psychological History: No Psychological Hx Reported Additional Psychological History / Comment(s): . Smoking Status: Never smoker Past Alcohol Use History: Rare Past Drug Use History: None Reported - Past Family History Father Family Medical History: Congestive Heart Failure (CHF) Additional Family Medical History / Comment(s): Father at the age of 72 yrs of CHF Mother Family Medical History: Cancer Additional Family Medical History / Comment(s): Mother of leukemia at the age of 47yrs. Brother(s) History Unknown: Yes Family Medical History: No Reported History Daughter(s) History Unknown: Yes Family Medical History: No Reported History Son(s) History Unknown: Yes Family Medical History: No Reported History Medications and Allergies Home Medications Medication Instructions Recorded Confirmed Type Aspirin 81 mg PO DAILY 12/24/16 11/06/22 Rx Adalimumab [Humira Pen] 40 mg SQ [id number] 11/06/22 11/06/22 History Atorvastatin [Lipitor] 80 mg PO DAILY 11/06/22 11/06/22 History Metoprolol Succinate [Toprol XL] 50 mg PO DAILY 11/06/22 11/06/22 History lisinopriL [Zestril] 10 mg PO DAILY 11/06/22 11/06/22 History Allergies Allergy/AdvReac Type Severity Reaction Status Date / Time No Known Allergies Allergy Verified 11/06/22 15:16 Surgical - Exam Vital Signs Temp Pulse Resp BP Pulse Ox 97 F L 53 L 20 137/78 99 11/09/22 06:45 11/09/22 06:45 11/09/22 06:45 11/09/22 06:45 11/09/22 06:45 Physical exam: General: Well-developed, well-nourished HEENT: Normocephalic, sclerae nonicteric Abdomen: Nontender, nondistended, small reducible umbilical hernia, small to moderate-sized reducible right inguinal hernia Extremities: No edema, large lipomatous mass left hip 10 x 8 cm Neuro: Alert and oriented Results - Labs Abnormal Lab Results - Last 24 Hours (Table) 11/09/22 Range/Units 06:23 POC Glucose (mg/dL) 122 H (70-110) mg/dL Assessment and Plan (1) Inguinal hernia Narrative/Plan: 62-year-old male with right inguinal hernia, umbilical hernia, and left hip lipomatous mass. We'll proceed with laparoscopic da Tonio assisted repair riding or hernia with mesh, possible open, possible bilateral with open repair umbilical hernia with possible mesh with excision left hip lipomatous mass. Risks of bleeding, infection, recurrence, bladder and bowel injury, numbness, nerve injury, conversion to an open procedure were discussed with the patient. The patient understands and wishes to proceed. Current Visit: Yes Status: Acute Code(s): K40.90 - UNIL INGUINAL HERNIA, W/O OBST OR GANGR, NOT SPCF RECUR SNOMED Code(s): 131996882
[2022-11-09 10:14] VITALS: RESP 16; TEMP 98
--- NOTE | 2022-11-09 10:28 | P.OP ---
Date of Procedure: 11/09/22 Procedure(s) Performed: PREOPERATIVE DIAGNOSIS: Umbilical hernia, right inguinal hernia, left hip mass POSTOPERATIVE DIAGNOSIS: Same PROCEDURE: Da Tonio assisted laparoscopic repair right direct inguinal hernia with mesh, open repair umbilical hernia, excision left hip mass with intermediate closure SURGEON: Dr. Sr ANESTHESIA: General OPERATIVE PROCEDURE DETAILS: Patient was placed in the operating table in the supine position. The patient was placed under general anesthesia. The abdomen was prepped and draped in usual sterile fashion. A small curvilinear supraumbilical incision was made. The hernia sac was dissected and partially excised. The umbilical skin was dissected away from the fascia. The defect was about 1.5 cm in size. We had a peritoneal opening at that location. 2 sutures were used to reapproximate the fascia. In between that the 8 mm trocar was advanced. Full insufflation took place to 15 mm. 2 additional 8 mm trochars were placed in the right upper quadrant and left upper quadrant under visualization. The robotic arms were then brought in and docked into place. The fenestrated bipolar was used in the left arm and the laparoscopic shahid was utilized in the right arm. A 30 8 mm scope was used in the up position. The peritoneal cavity was inspected. No hernia was seen on the left-hand side. On the right-hand side a moderate sized direct inguinal hernia was seen. The peritoneum was incised in a horizontal fashion cephalad to the internal inguinal ring. Following that careful dissection of the preperitoneal space took place. This took place using both electrocautery, sharp dissection but primarily blunt dissection. Visualization of the pubic tubercle and Marcelino's ligament took place medially. Full dissection took place laterally as well. The hernia sac was fully dissected. Once we had adequate space the [id number] Progrip mesh was advanced into the preperitoneal space and flattened out appropriately to cover all potential hernia sites. The mesh was sutured to Marcelino's ligament, pubis, and midline using a running absorbable 30V lock suture. The peritoneal defect was then closed using a absorbable 2-0 VLok suture. The hernia sac was incorporated into the peritoneal closure to help prevent future recurrence. The pneumoperitoneum was then evacuated. The fascia felt fairly strong at the umbilical hernia site. The fascial defect was closed using interrupted [id number] Ethibond sutures. No mesh was utilized. The umbilicus was sutured down using a 2-0 Vicryl stitch through the subcutaneous tissues were closed using 3-0 Vicryl sutures. The skin of all 3 sites was closed using a 4-0 Monocryl stitch. Skin glue was then applied. We then reprepped and draped the left hip area. A vertical incision was made overlying the palpable mass. The large lipomatous mass was carefully dissected using blunt dissection and c autery. This had multiple extensions into the surrounding tissues. This was removed as one piece. No residual atypical lipomatous tissue was noted at that time. The size of this was 12 x 10 cm. This was sent to pathology. This was above the level of the fascia. The area was irrigated. No bleeding was seen. The subcutaneous tissues were closed using 20 and 3-0 Vicryl sutures. Length of intermediate closure 8 cm. The skin was closed using a running 4-0 Monocryl suture. Skin glue and sterile dressings were applied. TYPE OF MESH USED: 15 x 10 cm progrip LOCATION OF MESH: Preperitoneal FIXATION: Absorbable 30V lock PREOPERATIVE DISCUSSION ON SMOKING CESSASTION: Yes PREOPERATIVE DISCUSSION ON MORBID OBESITY: Yes PREOPERATIVE DISCUSSION ON APPROPRIATE USE OF NARCOTIC USE: Yes PREOPERATIVE EDUCATION: Multi Modal, Smoking Cessation and Weight Loss with BMI over 35. DISPOSITION: Stable to recovery room
[2022-11-09 12:29] VITALS: BP 149/77; PULSE 52
== END ==
LOC: OR 05:41
PROVIDERS: ATTEND Surgery
DX: D17.24 Benign lipomatous neoplasm of skin and subcutaneous tissue of left leg (principal); K40.90 Unilateral inguinal hernia, without obstruction or gangrene, not specified as recurrent; K42.9 Umbilical hernia without obstruction or gangrene; I25.10 Atherosclerotic heart disease of native coronary artery without angina pectoris; I25.2 Old myocardial infarction; I10 Essential (primary) hypertension; E78.5 Hyperlipidemia, unspecified; Z95.1 Presence of aortocoronary bypass graft; Z98.890 Other specified postprocedural states; F10.20 Alcohol dependence, uncomplicated; Z79.82 Long term (current) use of aspirin; Z79.899 Other long term (current) drug therapy
CPT/HCPCS: 27045; 49591; 49650; S2900; 86850; 86900; 86901; 88302; 88304

== ENCOUNTER → 2023-04-10 | Outpatient (CLI) | payer BC ==
[2023-04-10 16:18] LABS: Chol/HDL Ratio 3.45 Ratio; LDL Cholesterol,Calculated 72.6 mg/dL (0.0-131.0)
[2023-04-10 16:27] LABS: Basophils # (A) 0.06 X 10*3/uL (0.00-0.10); Basophils % (A) 0.6 %; Eosinophils # (A) 0.19 X 10*3/uL (0.04-0.35); Eosinophils % (A) 1.9 %; HCT 49.4 % (39.6-50.0); HGB 16.2 g/dL (13.0-17.0); Lymphocytes # (A) 2.89 X 10*3/uL (0.90-5.00); Lymphocytes % (A) 29.2 %; MCH 28.9 pg (27.0-32.0); MCHC 32.8 g/dL (32.0-37.0); MCV 88.2 FL (80.0-97.0); Mean Platelet Volume 10.5 FL (9.5-12.2); Monocytes # (A) 0.82 X 10*3/uL (0.20-1.00); Monocytes % (A) 8.3 %; NRBC Per 100 WBC 0 X 10*3/uL (0.00-0.01); Neutrophils # (A) 5.92 X 10*3/uL (1.80-7.70); Neutrophils % (A) 59.7 %; Platelet Count 268 X 10*3/uL (140-440); RDW 13.1 % (11.5-14.5); WBC 9.91 X 10*3/uL (4.50-10.00)
[2023-04-10 16:32] LABS: ALT 37 U/L (10-49); AST 27 U/L (14-35)
== END | disposition home or self-care (01) ==
LOC: LABWHC1 07:52
PROVIDERS: ATTEND Internal Medicine Cardiovascular Disease
DX: E78.2 Mixed hyperlipidemia (principal); L40.0 Psoriasis vulgaris; Z79.899 Other long term (current) drug therapy
CPT/HCPCS: 36415; 80061; 82565; 84450; 84460; 85025; 86480

== ENCOUNTER → 2024-04-23 | Outpatient (CLI) | payer BC | END | disposition home or self-care (01) | LOC: LABWHC1 09:51 | PROVIDERS: ATTEND Physician Assistant Medical | DX: L40.0 Psoriasis vulgaris (principal) | CPT/HCPCS: 36415; 86480 ==